=== PATIENT | female | born 1930 | race Caucasian/White ===

== ENCOUNTER 2019-07-15 08:14 | Emergency (ER) | payer MEDICARE ==
[2019-07-15] MEDS ORDERED: traMADol HCl 50 MG TAB ONE ×2 (09:05→17:10)
[2019-07-15 09:28] LABS: Hemoglobin 13.1 g/dL (12.0-16.0); Mean Corpuscular HGB CONC 32.7 g/dL (32.0-36.0); Mean Corpuscular Hemoglobin 35.1 pg (27.0-31.0); Mean Platelet Volume 8.6 fL (7.4-10.4); Platelet Count 230 thou/uL (130-400); Red Blood Cell (RBC) Count 3.73 mill/uL (4.20-5.40); White Blood Cell (WBC) Count 10.7 thou/uL (4.8-10.8)
[2019-07-15 09:37] LABS: ALT (SGPT) 16 U/L (8-55); AST (SGOT) 52 U/L (5-34); Albumin 3.6 g/dL (3.4-4.8); Alkaline Phosphatase 57 U/L (40-110); Anion Gap 18 mmol/L (10-20); BUN (Urea Nitrogen) 36 mg/dL (9.8-20.1); CK (CPK) 450 U/L (29-168); Calc. Creatinine Clearance 0 mL/min (70-130); Calcium 10.2 mg/dL (7.8-10.44); Carbon Dioxide 23 mmol/L (23-31); Chloride 102 mmol/L (98-107); Estimated GFR-MDRD 37; Globulin 4.5 g/dL (2.4-3.5); Glucose 136 mg/dL (83-110); Potassium 4.3 mmol/L (3.5-5.1); Protein, Total 8.1 g/dL (6.0-8.3); Sodium 139 mmol/L (136-145)
[2019-07-15 09:50] LABS: #Lymphocytes 0.9 thou/uL (1.20-3.40); #Monocytes 0.8 thou/uL (0.11-0.59); %Basophils 0.3 % (0.0-1.0); %Eosinophils 0.3 % (0.0-10.0); %Lymphocytes 8.3 % (21.0-51.0); %Monocytes 7.2 % (0.0-10.0); %Neutrophils 83.8 % (42.0-75.0); MDiff Complete? YES; Macrocytosis SLIGHT = 6-15 cells (100X) (0-5/hpf); Platelet Morphology Comment Appears Adequate
--- NOTE | 2019-07-15 10:03 | RAD ---
EXAM: Single view of the chest HISTORY: Low back pain after fall COMPARISON: None FINDINGS: Single view of the chest shows a normal sized cardiomediastinal silhouette. Scarring is se en in the lung apices. A calcified granuloma is seen in both sides of the thorax. Atherosclerotic calcifications are seen in the aorta. There is no evidence of consolidation, mass, or pleural effusio n. The bones are unremarkable. IMPRESSION: No evidence of acute cardiopulmonary disease
--- NOTE | 2019-07-15 10:09 | CT ---
CT Abdomen Pelvis WO Con: 07/15/2019 9:[address] of the lumbar spine without contrast CLINICAL INFORMATION: Low back pain for 2 days after fall COMPARISON: None. TECHNIQUE: 1. Multiple contiguous axial images were obtained and a CT of the abdomen and pelvis with IV contrast . Oral contrast was administered. Coronal and sagittal reformats were performed. 2. A limited CT of the lumbosacral spine was performed. Sagittal and coronal reformats were created b ased off images obtained on the abdominal/pelvic CT. FINDINGS: Lower Chest: Bibasilar atelectasis. Calcified granuloma in the left lung base. Abdomen: Liver: A few calcified granulomas Bile Ducts: Normal caliber. Gallbladder: Contrast is seen in the gallbladder from recent contrast examination. Pancreas: within normal limits. Spleen: A single calcified granuloma Adrenals: within normal limits. Kidneys: Calcifications in the hilar regions of both kidneys are likely vascular calcifications. No h ydronephrosis is seen. Pelvis: Reproductive Organs: No pelvic masses. Ureters: within normal limits. Bladder: within normal limits. Peritoneum: No ascites or free air, no fluid collection. Bowel: Normal caliber. Scattered diverticula in the colon. Mesentery and Retroperitoneum: No enlarged mesenteric or retroperitoneal lymph nodes. Vessels: Atherosclerotic calcifications. Abdominal Wall: within normal limits. Bones: No acute osseous abnormality. There are severe degenerative changes in the lumbar spine. Grade 1 anterolisthesis is seen at L4/5. M ultiple wedge compression fractures are seen throughout the spine which appear remote with sclerosis of these vertebral bodies. No acute fracture is appreciated. IMPRESSION: 1. No evidence of acute intraabdominal or pelvic abnormality. 2. No evidence of acute osseous abnormality of the lumbar spine. 3. Diverticulosis
[2019-07-15] MEDS ORDERED: Morphine 4 MG/ML VIAL ONE (18:53)
== END 2019-07-15 19:40 | disposition short-term general hospital (02) ==
LOC: BURERS 08:14
DX: S32.049A Unspecified fracture of fourth lumbar vertebra, initial encounter for closed fracture (principal); S32.059A Unspecified fracture of fifth lumbar vertebra, initial encounter for closed fracture; E86.0 Dehydration; I10 Essential (primary) hypertension; J44.9 Chronic obstructive pulmonary disease, unspecified; Z79.899 Other long term (current) drug therapy; W19.XXXA Unspecified fall, initial encounter; Y92.009 Unspecified place in unspecified non-institutional (private) residence as the place of occurrence of the external cause
CPT/HCPCS: 71045; 74176; 80053; 82550; 85025; 93005; 96374; J2270

== ENCOUNTER 2019-07-19 12:31 | Emergency (ER) | payer MEDICARE ==
[2019-07-19 13:10] LABS: #Lymphocytes 0.6 thou/uL (1.20-3.40); #Monocytes 0.8 thou/uL (0.11-0.59); #Neutrophils 7.3 thou/uL (1.40-6.50); %Basophils 0.5 % (0.0-1.0); %Eosinophils 0.1 % (0.0-10.0); %Lymphocytes 6.8 % (21.0-51.0); %Monocytes 8.9 % (0.0-10.0); %Neutrophils 83.7 % (42.0-75.0); Hemoglobin 11.6 g/dL (12.0-16.0); Mean Corpuscular HGB CONC 30.8 g/dL (32.0-36.0); Mean Corpuscular Hemoglobin 33.5 pg (27.0-31.0); Mean Platelet Volume 9.2 fL (7.4-10.4); Platelet Count 234 thou/uL (130-400); RBC Distribution Width 12.1 % (11.5-14.5); Red Blood Cell (RBC) Count 3.46 mill/uL (4.20-5.40); White Blood Cell (WBC) Count 8.7 thou/uL (4.8-10.8)
[2019-07-19 13:23] LABS: ALT (SGPT) 50 U/L (8-55); AST (SGOT) 150 U/L (5-34); Albumin 3.8 g/dL (3.4-4.8); Alkaline Phosphatase 69 U/L (40-110); Anion Gap 22 mmol/L (10-20); BUN (Urea Nitrogen) 64 mg/dL (9.8-20.1); Bilirubin, Total 1.3 mg/dL (0.2-1.2); Calc. Creatinine Clearance 0 mL/min (70-130); Calcium 10.5 mg/dL (7.8-10.44); Carbon Dioxide 22 mmol/L (23-31); Chloride 107 mmol/L (98-107); Estimated GFR-MDRD 23; Globulin 4.6 g/dL (2.4-3.5); Glucose 102 mg/dL (83-110); Lipase 24 U/L (8-78); Potassium 5.5 mmol/L (3.5-5.1); Protein, Total 8.4 g/dL (6.0-8.3); Sodium 145 mmol/L (136-145)
[2019-07-19 13:28] LABS: MDiff Complete? YES; Macrocytosis SLIGHT = 6-15 cells (100X) (0-5/hpf); Platelet Morphology Comment Appears Adequate
--- NOTE | 2019-07-19 13:32 | CT ---
EXAM: CT cervical spine PROVIDED CLINICAL HISTORY: Fall COMPARISON: None FINDINGS: No evidence for fracture or traumatic subluxation. No prevertebral soft tissue swelling apparent. Vi sualized lung apices appear clear. Cervical degenerative changes are seen. IMPRESSION: No evidence for fracture or traumatic subluxation.
--- NOTE | 2019-07-19 13:35 | CT ---
CT Brain WO Con History: Fall Comparison: None. Findings: High-grade atrophy. No acute hemorrhage. No infarct. Expected dilatation of the ventricular systems and extra-axial CSF spaces. Calvarium is intact. Paranasal sinuses and mastoids are clear. Impression: No acute posttraumatic intracranial sequelae.
--- NOTE | 2019-07-19 13:36 | RAD ---
XR Chest 1 View Portable History: Weakness Comparison: Radiograph July 15, 2019 Findings: Similar appearance of biapical pleural scarring. Moderate calcification transverse aorta. T12 and L2 compression deformities are similar. Mild scarring lung bases. Impression: Chronic findings. No acute intrathoracic abnormality.
[2019-07-19 13:51] LABS: CKMB 67.1 ng/mL (0-6.6)
[2019-07-19 13:57] LABS: Bilirubin Moderate (Negative); Blood, Urine Small (Negative); Glucose, Urine (Dipstick) Negative (Negative); Leukocyte Negative (Negative); Nitrite Negative (Negative); Protein, Urine (Dipstick) > or equal to 300 mg/dL (Neg-Trace); Urobilinogen 0.2 mg/dL (Less than 2)
[2019-07-19 14:03] LABS: Clarity Hazy (Clear); RBC/HPF 0-3 HPF (0-3); WBC/HPF 0-3 HPF (0-3)
[2019-07-19 14:04] LABS: Bacteria/HPF 2+ HPF (None Seen)
[2019-07-19] MEDS ORDERED: Sodium Chloride 0.9% 100 ML ONE ×2 (14:30→14:31)
[2019-07-19] MEDS ORDERED: Piperacillin/Tazobactam 4.5 GM VIAL ONE (14:30)
--- NOTE | 2019-07-19 15:03 | RAD ---
XR Foot Rt 2 View HISTORY: Pain in the first digit, left foot pain FINDINGS: Hallux valgus deformity is seen. There is a minimally displaced fracture involving the lateral aspect of the head of the first metatarsal.
== END 2019-07-19 17:24 | disposition short-term general hospital (02) ==
LOC: BURERS 12:31
DX: E86.0 Dehydration (principal); N17.9 Acute kidney failure, unspecified; I44.1 Atrioventricular block, second degree; R79.89 Other specified abnormal findings of blood chemistry
CPT/HCPCS: 36416; 51701; 70450; 71045; 72125; 80053; 81003; 81015; 82550; 82553; 83605; 83690; 84484; 85025; 93005; 94760; 96361; 96365; A4353; J2543; J3490